=== PATIENT | male | born 1970 | race Two or more races ===

== ENCOUNTER → 2024-04-23 11:07 | Outpatient (REF) | payer OTHER, SELFPAY | LOC: RAD 11:07 | PROVIDERS: FAMILY PHYSICIAN Family Medicine | DX: Z04.9 Encounter for examination and observation for unspecified reason (principal) | CPT/HCPCS: 71046 ==

== ENCOUNTER → 2024-06-02 06:11 | Day surgery (SDC) | payer BC, MEDICARE, SELFPAY | LOC: GI 06:11 | PROVIDERS: ATTENDING PHYSICIAN Surgery | DX: Z12.11 Encounter for screening for malignant neoplasm of colon (principal); D12.2 Benign neoplasm of ascending colon; K63.5 Polyp of colon; Z83.719 Family history of colon polyps, unspecified | CPT/HCPCS: 45380; 88305 ==